=== PATIENT | female | born 1965 ===

== ENCOUNTER 2017-11-05 10:38 | Outpatient (CLI) | payer OTHER ==
--- NOTE | 2017-11-05 16:19 | Mammography Report ---
BILATERAL DIGITAL SCREENING MAMMOGRAM with CAD: 11/05/17 10:38:00 CLINICAL: Routine screening. COMPARISON:However none available at this time. However, she indicated that she had a previous mammogram at [facility]. FINDINGS: The breasts are mostly fatty with a few bilateral retroareolar fibroglandular densities.Left focal asymmetry and architectural distortion requires additional imaging. No suspicious calcifications. The right breast is negative. IMPRESSION: Left focal asymmetry and architectural distortion requiring further workup. BI-RADS CATEGORY: 0 -- Additional Imaging Evaluation Required RECOMMENDATION: Recall for left mediolateral and spot magnification MLO and CC views and left breast ultrasound if needed. We will also attempt to obtain a prior mammogram for comparison. ACR BI-RADS MAMMOGRAPHIC CODES: 0 = Needs additional imaging evaluation; 1 = Negative; 2 = Benign; 3 = Probably benign; 4 = Suspicious; 5 = Malignant; 6 = Known biopsy-proven malignancy COMMENT: 1. Dense breast tissue, i.e., adenosis, fibrocystic changes, etc., may obscure an underlying neoplasm. 2. Approximately 10% of cancers are not detected with mammography. 3. A negative mammography report should not delay biopsy if a clinically suspicious mass is present. COMMENT: Patient follow-up letters are generated via our [employer] application.
== END 2017-11-05 10:39 | disposition home or self-care (01) ==
LOC: SPVWC 10:38
PROVIDERS: ATTEND Family Medicine
DX: Z12.31 Encounter for screening mammogram for malignant neoplasm of breast (principal)
CPT/HCPCS: 77067